=== PATIENT | female | born 1955 | race Caucasian/White ===

== ENCOUNTER → 2016-08-20 | Outpatient (CLI) | payer OTHER ==
[~2016-08-20] MED LIST: AMB10 PO; CEPH500T PO; FEXO1TAB46 PO; SERT-234 PO; SULF-183 PO; VALA500T60 PO
--- NOTE | 2016-08-20 07:40 | DIAGNOSTIC IMAGING REPORT ---
CT SCAN OF THE PARANASAL SINUSES CLINICAL HISTORY: Chronic sinusitis. COMPARISON STUDY: CT of the brain dated 08/14/2011. TECHNIQUE: High-resolution CT scan of the paranasal sinuses is performed. Images are reviewed in the axial, sagittal, and coronal planes. IV contrast was not administered for this examination. The examination is performed using the fusion protocol. CT DOSE: 657.00 mGy.cm FINDINGS: Postoperative change: There are postoperative changes from bilateral maxillary antrectomy with antrostomy formation as well as ethmoid sinus resection. Maxillary antra: Clear bilaterally. Ethmoid cavities: Clear. Sphenoid sinuses: Clear. Frontal sinuses: Clear. Antrostomies: Patent bilaterally. Frontoethmoidal and sphenoethmoidal recesses: Patent bilaterally. Carotid arteries: The carotid arteries are covered and without septal attachments. Ethmoid roofs: There is slightly asymmetric elevation of the right ethmoid roof as compared to the left. Nasal turbinates: Normal in appearance. Nasal septum: There is mild rightward deviation of the bony nasal septum. Optic nerves: Covered. Orbits: The bony orbits are intact. Orbital contents are normal in appearance. Calvarium: The skeletal structures are osteopenic. The imaged calvarium is normal in appearance Mastoid air cells: Well pneumatized. Brain parenchyma: Partially visualized brain parenchyma is within normal limits. IMPRESSION: 1. No paranasal sinus disease is identified. 2. Postoperative change as above. Electronically signed by: Florencio Mcguire M.D. 08/20/2016 7:39 AM Dictated Date/Time: 08/20/2016 7:36 AM
== END | disposition home or self-care (01) ==
LOC: C.CTS 07:18
DX: J32.9 Chronic sinusitis, unspecified (principal)

== ENCOUNTER → 2017-03-06 | Outpatient (CLI) | payer OTHER ==
[~2017-03-06] MED LIST changes: +BUPR-79 PO; +CETI10TA84 PO; +CHOL100010 PO; +CITA10TA4 PO; +DIAZ2TAB PO; +ESCI1TAB10 PO; +FLUT0.15; +MECL1TAB42 PO; +MULT-506 PO; +TRAM-453 PO; +ZOLP10TA PO; +ZOLP10TA6 PO
--- NOTE | 2017-03-06 12:47 | MAMMOGRAPHY REPORT ---
BILATERAL DIGITAL SCREENING MAMMOGRAM TOMOSYNTHESIS WITH CAD: 03/06/2017 CLINICAL HISTORY: Routine screening. TECHNIQUE: Breast tomosynthesis in addition to standard 2D mammography was performed. Current study was also evaluated with a Computer Aided Detection (CAD) system. COMPARISON: Comparison is made to exams dated: 02/29/2016 mammogram, 01/06/2015 mammogram, 01/05/2014 mammogram, 12/09/2012 mammogram, 03/01/2011 mammogram, and 02/22/2010 mammogram - [facility]. BREAST COMPOSITION: The tissue of both breasts is heterogeneously dense, which may obscure small mas ses. FINDINGS: No suspicious masses, calcifications, or areas of architectural distortion are noted in ei ther breast. There has been no significant interval change compared to prior exams. IMPRESSION: ACR BI-RADS CATEGORY 1: NEGATIVE There is no mammographic evidence of malignancy. A 1 year screening mammogram is recommended. The pa tient will receive written notification of the results. Approximately 10% of breast cancers are not detected with mammography. A negative mammographic report should not delay biopsy if a clinically suggestive mass is present. Madai Dimas M.D. /:03/06/2017 07:53:16 Platform Loader: Gerald COON(Юлия)(M), [facility] letter sent: Normal 1/2 BI-RADS Code: ACR BI-RADS Category 1: Negative
== END | disposition home or self-care (01) ==
LOC: C.MAMM 07:31
PROVIDERS: ATTEND Internal Medicine
DX: Z12.31 Encounter for screening mammogram for malignant neoplasm of breast (principal)

== ENCOUNTER 2017-03-07 12:01 | Emergency (ER) | payer OTHER ==
[~2017-03-07] VITALS: Ht 157.5 cm; Wt 55.8 kg
[~2017-03-07 12:01] MED LIST changes: -BUPR-79 PO; -CETI10TA84 PO; -CHOL100010 PO; -CITA10TA4 PO; -DIAZ2TAB PO; -ESCI1TAB10 PO; -FLUT0.15; -MECL1TAB42 PO; -MULT-506 PO; -TRAM-453 PO; -ZOLP10TA PO; -ZOLP10TA6 PO
[2017-03-07 12:04] VITALS: TEMP 36.3; Ht 157.5 cm; Wt 55.8 kg
[2017-03-07] MEDS ORDERED: CITA10TA4 PO (12:26)
[2017-03-07] MEDS ORDERED: ZOLP10TA6 PO (12:26)
[2017-03-07] MEDS ORDERED: BUPR-79 PO (12:26)
[2017-03-07] MEDS ORDERED: CHOL100010 PO (12:26)
[2017-03-07] MEDS ORDERED: MoRPHine SULFATE 10 MG/ML CARP/VIAL IV STA (12:36)
[2017-03-07] MEDS ORDERED: KETOROLAC TROMETHAMINE 30 MG/ML VIAL IV STA (12:36)
[2017-03-07] MEDS ORDERED: ONDANSETRON INJ 2 MG/ML 2 ML VIAL IV STA (12:36)
--- NOTE | 2017-03-07 12:42 | EMERGENCY ROOM VISIT NOTE ---
History Report prepared by [place]: Valentín Powell Under the Supervision of: Dr. Titi Staton M.D. First contact with patient: 12:19 Chief Complaint: BACK PAIN Stated Complaint: SEVERE LOWER BACK PAIN, HIP PAIN History of Present Illness The patient is a 61 year old white female without a past medical history who presents to the ED with a cc of worsening sharp left lower back pain beginning 1 week ago. Positive pain radiating into LLQ abdominal pain. Negative falls, injury, abnormal weight lifting, fevers, chills, cough, sore throat, nausea, vomiting, melena, hematochezia, diarrhea, or abnormal urinary symptoms. Her pain worsens significantly with movement. She does not get menstrual periods. She denies any history of kidney stones. She does not have any known drug allergies. She is currently taking Zolpidem, Wellbutrin, and Citalopram. Her last bowel movement was this morning and was normal. Source of History: patient Onset: 1 week ago Position: back (lower, left) Symptom Intensity: moderate Quality: sharp Timing: worsening Modifying Factors (Worsening): movement Associated Symptoms: + abdominal pain, No fevers, No chills, No sorethroat, No cough, No nausea, No vomiting, No melena, No hematochezia, No diarrhea, No urinary symptoms Review of Systems See HPI for pertinent positives and negatives. A total of ten systems were reviewed and were otherwise negative. Past Medical & Surgical Medical Problems: (1) Bladder surgery (2) Bronchitis (3) Depression (4) Foot surgery (5) Shoulder surgery (6) Sinus surgery (7) Tonsillectomy Family History Hypertension Lung disease Social History Smoking Status: Never Smoker Alcohol Use: none Drug Use: none Marital Status: Housing Status: lives with family Occupation Status: employed Current/Historical Medications Scheduled Bupropion (Wellbutrin Sr), 150 MG PO BID Cholecalciferol (Vitamin D), 1,000 UNITS PO DAILY Citalopram Hydrobromide (Citalopram Hydrobromide), 10 MG PO DAILY Tramadol Hcl (Ultram), 50 MG PO Q8H Valacyclovir (Valtrex), 500 MG PO BID PRN Scheduled PRN Zolpidem Tartrate (Zolpidem Tartrate), 10 MG PO HS PRN for Sleep Allergies Coded Allergies: No Known Allergies (Verified , 10/05/12) Physical Exam Vital Signs Date Time Temp Pulse Resp B/P (MAP) Pulse Ox O2 Delivery O2 Flow Rate FiO2 03/07/17 15:28 79 16 193/110 100 03/07/17 13:26 88 03/07/17 13:20 90 20 195/113 97 Room Air 03/07/17 12:04 36.3 98 20 202/100 100 Room Air Physical Exam GENERAL: Awake, alert, well-appearing, NAD HENT: Normocephalic, atraumatic. EYES: Normal conjunctiva. Sclera non-icteric. NECK: Supple. No nuchal rigidity. FROM. RESPIRATORY: CTAB, no rhonchi, wheezing, crackles CARDIAC: RRR, no MRG ABDOMEN: Soft, left sided flank pain, left CVA TTP, and mild diffuse TTP, BS+, negative obturators and psoas. MSK: No chest wall TTP, no LE edema NEURO: GCS 15, CN 2-12 intact, moves all 4s on command SKIN: No rash or jaundice noted. Medical Decision & Procedures ER Provider Diagnostic Interpretation: Radiology results as stated below per my review and radiologist interpretation: CHEST ONE VIEW PORTABLE CLINICAL HISTORY: Pain, radiating to the abdomen. COMPARISON STUDY: 09/15/2013 FINDINGS: The cardiac and mediastinal contours are normal. There is no evidence of focal pulmonary consolidation. There is no evidence of failure. No pleural effusions are visualized.[ Linear atelectatic changes are present the right medial lung base. There is no free intraperitoneal air. IMPRESSION: No active disease in the chest. Electronically signed by: Moreno Sandra M.D. 03/07/2017 1:11 PM Dictated Date/Time: 03/07/2017 1:09 PM ABD/PELVIS IV CONTRAST ONLY CLINICAL HISTORY: 61 years-old Female presenting with L sided flank, LLQ TTP, recent BM, no blood, mild diff TTP. TECHNIQUE: Multidetector CT of the abdomen and pelvis was performed after the administration of intravenous contrast. IV contrast: 93 mL of Optiray 320. A dose lowering technique was used consistent with the principles of ALARA (as low as reasonably achievable). COMPARISON: 08/06/2011. CT DOSE (mGy.cm): The estimated cumulative dose is 286.95 mGy.cm. FINDINGS: Telemarketing Representative topogram: Unremarkable. Lung bases: Minimal basilar opacities, likely atelectasis. Normal heart size. No pericardial or pleural effusion. Liver: Normal morphology. No liver lesion. Patent hepatic vasculature. Biliary: Mild diffuse intrahepatic biliary ductal dilatation without evidence of obstructing mass. No extra hepatobiliary ductal dilatation. Normal gallbladder. Pancreas: Mild pancreatic ductal prominence without evidence of an obstructing mass. Parenchyma normal. Spleen: Normal. Adrenal glands: Normal. Kidneys and ureters: Several hypodensities in the left kidney likely simple cysts. No hydronephrosis. No nephrolithiasis. Ureters normal. Bladder: Normal. Pelvic organs: Uterus and ovaries normal. Bowel: Moderate stool burden throughout normal caliber colon. The appendix is normal. No bowel traction. Peritoneal cavity: No free fluid or intraperitoneal gas. Lymph nodes: No enlarged lymph nodes in the abdomen or pelvis. Vasculature: Atherosclerosis of the normal caliber abdominal aorta. IVC patent. Abdominal wall: Small fat-containing umbilical hernia. Musculoskeletal: Normal. IMPRESSION: 1. No acute intra-abdominal pathology. 2. Mild diffuse intrahepatic biliary ductal dilatation without gross evidence of an obstructing mass. 3. Moderate stool burden. 4. No nephrolithiasis. Electronically signed by: Alan Mehta M.D. 03/07/2017 1:59 PM Dictated Date/Time: 03/07/2017 1:53 PM Laboratory Results 03/07/17 12:46 Red Blood Count 3.49, Mean Corpuscular Volume 89.1, Mean Corpuscular Hemoglobin 29.8, Mean Corpuscular Hemoglobin Concent 33.4, Mean Platelet Volume 9.8, Neutrophils (%) (Auto) 77.6, Lymphocytes (%) (Auto) 15.9, Monocytes (%) (Auto) 4.6, Eosinophils (%) (Auto) 1.0, Basophils (%) (Auto) 0.5, Neutrophils # (Auto) 6.38, Lymphocytes # (Auto) 1.31, Monocytes # (Auto) 0.38, Eosinophils # (Auto) 0.08, Basophils # (Auto) 0.04 03/07/17 12:46 Test 03/07/17 12:46 03/07/17 13:15 White Blood Count 8.22 K/uL (4.8-10.8) Red Blood Count 3.49 M/uL (4.2-5.4) Hemoglobin 10.4 g/dL (12.0-16.0) Hematocrit 31.1 % (37-47) Mean Corpuscular Volume 89.1 fL (80-100) Mean Corpuscular Hemoglobin 29.8 pg (25-34) Mean Corpuscular Hemoglobin Concent 33.4 g/dl (32-36) Platelet Count 291 K/uL (130-400) Mean Platelet Volume 9.8 fL (7.4-10.4) Neutrophils (%) (Auto) 77.6 % Lymphocytes (%) (Auto) 15.9 % Monocytes (%) (Auto) 4.6 % Eosinophils (%) (Auto) 1.0 % Basophils (%) (Auto) 0.5 % Neutrophils # (Auto) 6.38 K/uL (1.4-6.5) Lymphocytes # (Auto) 1.31 K/uL (1.2-3.4) Monocytes # (Auto) 0.38 K/uL (0.11-0.59) Eosinophils # (Auto) 0.08 K/uL (0-0.5) Basophils # (Auto) 0.04 K/uL (0-0.2) RDW Standard Deviation 47.3 fL (36.4-46.3) RDW Coefficient of Variation 14.8 % (11.5-14.5) Immature Granulocyte % (Auto) 0.4 % Immature Granulocyte # (Auto) 0.03 K/uL (0.00-0.02) Anion Gap 7.0 mmol/L (3-11) Est Creatinine Clear Calc Drug Dose 77.9 ml/min Estimated GFR () 114.0 Estimated GFR (Non- 98.4 BUN/Creatinine Ratio 14.7 (10-20) Calcium Level 9.3 mg/dl (8.5-10.1) Total Bilirubin 0.3 mg/dl (0.2-1) Direct Bilirubin < 0.1 mg/dl (0-0.2) Aspartate Amino Transf (AST/SGOT) 33 U/L (15-37) Alanine Aminotransferase (ALT/SGPT) 34 U/L (12-78) Alkaline Phosphatase 73 U/L (45-117) Total Protein 7.3 gm/dl (6.4-8.2) Albumin 4.0 gm/dl (3.4-5.0) Lipase 186 U/L (73-393) Influenza Type A Antigen Neg for Influ A (NEG) Influenza Type B Antigen Neg for Influ B (NEG) Urine Color YELLOW Urine Appearance CLOUDY (CLEAR) Urine pH 8.0 (4.5-7.5) Urine Specific [place] 1.014 (1.000-1.030) Urine Protein NEG (NEG) Urine Glucose (UA) NEG (NEG) Urine Ketones NEG (NEG) Urine Occult Blood NEG (NEG) Urine Nitrite NEG (NEG) Urine Bilirubin NEG (NEG) Urine Urobilinogen NEG (NEG) Urine Leukocyte Esterase NEG (NEG) Urine WBC (Auto) 1-5 /hpf (0-5) Urine RBC (Auto) 0-4 /hpf (0-4) Urine Hyaline Casts (Auto) 0 /lpf (0-5) Urine Epithelial Cells (Auto) 0-5 /lpf (0-5) Urine Bacteria (Auto) NEG (NEG) Laboratory results reviewed by me Medications Administered Medications (Trade) Dose Ordered Sig/Heide Route Start Time Stop Time Status Last Admin Dose Admin Ondansetron HCl (Zofran Inj) 4 mg NOW STAT IV 03/07/17 12:36 03/07/17 12:40 DC 03/07/17 13:20 4 MG Ketorolac Tromethamine (Toradol Inj) 30 mg NOW STAT IV 03/07/17 12:36 03/07/17 12:40 DC 03/07/17 13:20 30 MG Morphine Sulfate (MoRPHine SULFATE INJ) 8 mg NOW STAT IV 03/07/17 12:36 03/07/17 12:40 DC 03/07/17 13:20 8 MG ED Course 1219: The patient was evaluated in room C7. A complete history and physical exam was performed. 1445: I reevaluated the patient. She is feeling better. Discussed results and discharge instructions: She verbalized understanding and agreement. The patient is ready for discharge. Medical Decision The patient is a 61 year old white female without a past medical history who presents to the ED with a cc of worsening sharp left lower back pain beginning 1 week ago. Positive pain radiating into LLQ abdominal pain. Negative falls, injury, abnormal weight lifting, fevers, chills, cough, sore throat, nausea, vomiting, melena, hematochezia, diarrhea, or abnormal urinary symptoms. Differential diagnosis: Etiologies such as renal colic, appendicitis, diverticulitis, mesenteric ischemia, aortic pathology, infections, inflammatory bowel disease, PUD, biliary pathology, UTI, PUD, biliary pathology, UTI, pancreatitis, obstruction, as well as others were entertained. Patient was seen and evaluated the bedside. Patient has had some worsening left -sided abdominal flank pain 1 week. Patient was seen by their primary care physician who referred him in for further evaluation. Patient does have a fairly tender left sided abdomen. Patient did have blood work completed along with a urinalysis, chest x-ray, and CT of the abdomen pelvis. Patient was also given pain medication. Patient's blood work was fairly unremarkable. Patient does not have an elevated white blood cell count. Patient does have some mild anemia. Patient does not have any elevations in her LFTs or lipase. Patient's kidney function. Patient urinalysis does not show infection or blood. CT does not show any acute medical or surgical pathology. Patient was informed of all findings patient was feeling improved and patient was told to follow-up with her PCP for further evaluation and treatment and possible specialist referral if the patient is have ongoing pain. Given the patient's normal white count, improvement of pain, and history and physical loss. Be somewhat mesenteric ischemia. I did inform the patient watch out for any skin changes that could be concerning for something like zoster. Patient was informed that the CT did show intrahepatic ductal dilation. The patient does not have any elevations in LFTs or bilirubin does not have any right upper quadrant pain therefore an ultrasound was obtained at this time. Patient was told she should discuss this with her primary care physician if this becomes more persistent issue but do not feel it needs to be worked up at this time. Patient was deemed suitable for outpatient follow-up and treatment. Patient was given strict follow-up, discharge, and return precautions. All questions were answered. Patient was deemed suitable for outpatient follow-up at this time. Patient agreed with the plan of care and was safely discharged home. Medication Reconcilliation Current Medication List: was personally reviewed by me Blood Pressure Screening Patient's blood pressure: Elevated blood pressure Blood pressure disposition: Referred to PCP Impression Primary Impression: Flank pain Additional Impressions: Anemia Hypokalemia Scribe Attestation The scribe's documentation has been prepared under my direction and personally reviewed by me in its entirety. I confirm that the note above accurately reflects all work, treatment, procedures, and medical decision making performed by me. Departure Information Dispostion Home / Self-Care Prescriptions Tramadol Hcl (ULTRAM) 50 Mg Tab 50 MG PO Q8H, #12 TAB PRN PAIN Prov: Titi Staton M.D. 03/07/17 Referrals Marcella Valadez M.D. (PCP) Forms HOME CARE DOCUMENTATION FORM, IMPORTANT VISIT INFORMATION Patient Instructions ED Flank Pain Uncertain Cause, Hypokalemia Dc, My [facility] Additional Instructions Please return to the emergency department if you have worsening or recurrent symptoms not amenable to at-home treatment. Please call for a follow-up appointment with her primary care physician. Please take your medications as prescribed. If you have other concerns and/or complaints please feel free to also call your primary care physician's office or return the ED for further evaluation, management, and treatment. You received narcotic or benzodiazepene medication while in the emergency room today. This is an addictive medication that may cause drowziness as well as constipation. Do not drive, operate heavy machinery, or drink alcohol under the influence of this medication. Your potassium was slightly low. You may supplement with a vitamin or you may increase the amount of potatoes or bananas in your diet. You may take 600 mg Ibuprofen every 6 hours as needed for pain with food for no more than 2 consecutive days. You may take tylenol 1000 mg every 6 hours as needed for pain. You may take motrin and tylenol separately or at the same time. Take your medications as prescribed. You have been examined and treated today on an emergency basis only. This is not a substitute for, or an effort to provide, complete comprehensive medical care. It is impossible to recognize and treat all injuries or illnesses in a single emergency department visit. It is therefore important that you follow up closely with [facility], your PCP, and/or your specialist(s). Call as soon as possible for an appointment. Thank you for your time and consideration. I look forward to speaking with you again soon. Please don't hesitate to call us if you have any questions. Problem Qualifiers Additional Impressions: Anemia Anemia type: unspecified type Qualified Codes: D64.9 - Anemia, unspecified
[2017-03-07] MEDS ORDERED: OPTIRAY 320 IV PRN (12:45)
[2017-03-07 13:08] LABS: BASO % 0.5 %; BASO ABS # 0.04 K/uL (0-0.2); EOS ABS # 0.08 K/uL (0-0.5); HEMATOCRIT 31.1 % (37-47); HEMOGLOBIN 10.4 g/dL (12.0-16.0); IG# 0.03 K/uL (0.00-0.02); LYMPH % 15.9 %; LYMPH ABS # 1.31 K/uL (1.2-3.4); MEAN CELL VOLUME 89.1 fL (80-100); MEAN CORPUSCULAR HEMOGLOBIN 29.8 pg (25-34); MEAN CORPUSCULAR HGB CONC 33.4 g/dl (32-36); MEAN PLATELET VOLUME 9.8 fL (7.4-10.4); MONO % 4.6 %; MONO ABS # 0.38 K/uL (0.11-0.59); NEUT % 77.6 %; NEUT ABS # 6.38 K/uL (1.4-6.5); PLATELET COUNT 291 K/uL (130-400); RED CELL DISTRIBUTION WIDTH CV 14.8 % (11.5-14.5); RED CELL DISTRIBUTION WIDTH SD 47.3 fL (36.4-46.3); WHITE BLOOD COUNT 8.22 K/uL (4.8-10.8)
--- NOTE | 2017-03-07 13:13 | DIAGNOSTIC IMAGING REPORT ---
CHEST ONE VIEW PORTABLE CLINICAL HISTORY: Pain, radiating to the abdomen. COMPARISON STUDY: 09/15/2013 FINDINGS: The cardiac and mediastinal contours are normal. There is no evidence of focal pulmonary consolidation. There is no evidence of failure. No pleural effusions are visualized.[ Linear atelectatic changes are present the right medial lung base. There is no free intraperitoneal air. IMPRESSION: No active disease in the chest. Electronically signed by: Moreno Sandra M.D. 03/07/2017 1:11 PM Dictated Date/Time: 03/07/2017 1:09 PM
[2017-03-07 13:26] LABS: ALT/SGPT 34 U/L (12-78); AST/SGOT 33 U/L (15-37); BLOOD UREA NITROGEN 9 mg/dl (7-18); CALCIUM 9.3 mg/dl (8.5-10.1); CARBON DIOXIDE 28 mmol/L (21-32); GLUCOSE 96 mg/dl (70-99); POTASSIUM 3.3 mmol/L (3.5-5.1); SODIUM 140 mmol/L (136-145)
[2017-03-07 13:29] LABS: ALKALINE PHOSPHATASE 73 U/L (45-117); LIPASE 186 U/L (73-393); TOTAL PROTEIN 7.3 gm/dl (6.4-8.2)
[2017-03-07 13:48] LABS: INFLUENZA B ANTIGEN Neg for Influ B (NEG)
--- NOTE | 2017-03-07 14:01 | DIAGNOSTIC IMAGING REPORT ---
ABD/PELVIS IV CONTRAST ONLY CLINICAL HISTORY: 61 years-old Female presenting with L sided flank, LLQ TTP, recent BM, no blood, mild diff TTP. TECHNIQUE: Multidetector CT of the abdomen and pelvis was performed after the administration of intravenous contrast. IV contrast: 93 mL of Optiray 320. A dose lowering technique was used consistent with the principles of ALARA (as low as reasonably achievable). COMPARISON: 08/06/2011. CT DOSE (mGy.cm): The estimated cumulative dose is 286.95 mGy.cm. FINDINGS: Curriculum Designer topogram: Unremarkable. Lung bases: Minimal basilar opacities, likely atelectasis. Normal heart size. No pericardial or pleural effusion. Liver: Normal morphology. No liver lesion. Patent hepatic vasculature. Biliary: Mild diffuse intrahepatic biliary ductal dilatation without evidence of obstructing mass. No extra hepatobiliary ductal dilatation. Normal gallbladder. Pancreas: Mild pancreatic ductal prominence without evidence of an obstructing mass. Parenchyma normal. Spleen: Normal. Adrenal glands: Normal. Kidneys and ureters: Several hypodensities in the left kidney likely simple cysts. No hydronephrosis. No nephrolithiasis. Ureters normal. Bladder: Normal. Pelvic organs: Uterus and ovaries normal. Bowel: Moderate stool burden throughout normal caliber colon. The appendix is normal. No bowel traction. Peritoneal cavity: No free fluid or intraperitoneal gas. Lymph nodes: No enlarged lymph nodes in the abdomen or pelvis. Vasculature: Atherosclerosis of the normal caliber abdominal aorta. IVC patent. Abdominal wall: Small fat-containing umbilical hernia. Musculoskeletal: Normal. IMPRESSION: 1. No acute intra-abdominal pathology. 2. Mild diffuse intrahepatic biliary ductal dilatation without gross evidence of an obstructing mass. 3. Moderate stool burden. 4. No nephrolithiasis. Electronically signed by: lAan Mehta M.D. 03/07/2017 1:59 PM Dictated Date/Time: 03/07/2017 1:53 PM
[2017-03-07] MEDS ORDERED: TRAM-453 PO (14:52)
[2017-03-07 15:28] VITALS: BP 193/110; PULSE 79; O2SAT 100
== END 2017-03-07 15:29 | disposition home or self-care (01) ==
LOC: C.EDB 12:02 → C.EDC 15:29
DX: R10.32 Left lower quadrant pain (principal); M54.5 Low back pain; D64.9 Anemia, unspecified; E87.6 Hypokalemia; F32.9 Major depressive disorder, single episode, unspecified; Z82.49 Family history of ischemic heart disease and other diseases of the circulatory system

== ENCOUNTER 2017-03-11 09:26 | Emergency (ER) | payer OTHER ==
[~2017-03-11] VITALS: Ht 157.5 cm; Wt 53.4 kg
[~2017-03-11 09:26] MED LIST changes: -AMB10 PO; +BUPR-79 PO; -CEPH500T PO; +CHOL100010 PO; +CITA10TA4 PO; -FEXO1TAB46 PO; -SERT-234 PO; -SULF-183 PO; +TRAM-453 PO; +ZOLP10TA6 PO
[2017-03-11 09:28] VITALS: TEMP 36.3; Ht 157.5 cm; Wt 53.4 kg
--- NOTE | 2017-03-11 11:00 | DIAGNOSTIC IMAGING REPORT ---
PA CHEST RADIOGRAPH AND UPRIGHT AND SUPINE AP RADIOGRAPHS OF THE ABDOMEN CLINICAL HISTORY: Constipation. Abdominal pain. COMPARISON STUDY: Chest radiograph and CT of the abdomen and pelvis March 07, 2017. FINDINGS: Lung lungs are normal. No pneumothorax or pleural effusion is noted. There is no evidence for pulmonary edema. No consolidation is identified. Cardiac mediastinal silhouette is normal. Biapical opacities favor scarring. There is no free air. The bowel gas pattern is normal. There is a moderate to large amount of stool within the colon. There is no significant stool within the rectum. IMPRESSION: 1. No free air or evidence of bowel obstruction. 2. Moderate to large amount of stool within the colon. 3. No acute cardiopulmonary findings. Electronically signed by: Jese Valadez M.D. 03/11/2017 10:58 AM Dictated Date/Time: 03/11/2017 10:57 AM
[2017-03-11 11:04] LABS: BASO % 0.5 %; BASO ABS # 0.04 K/uL (0-0.2); EOS % 0.4 %; EOS ABS # 0.03 K/uL (0-0.5); HEMATOCRIT 32.8 % (37-47); HEMOGLOBIN 11.2 g/dL (12.0-16.0); IG# 0.02 K/uL (0.00-0.02); LYMPH % 13.4 %; LYMPH ABS # 1.12 K/uL (1.2-3.4); MEAN CELL VOLUME 87.2 fL (80-100); MEAN CORPUSCULAR HEMOGLOBIN 29.8 pg (25-34); MEAN CORPUSCULAR HGB CONC 34.1 g/dl (32-36); MEAN PLATELET VOLUME 9.5 fL (7.4-10.4); MONO % 4.1 %; MONO ABS # 0.34 K/uL (0.11-0.59); NEUT % 81.4 %; NEUT ABS # 6.78 K/uL (1.4-6.5); PLATELET COUNT 390 K/uL (130-400); RED CELL DISTRIBUTION WIDTH CV 14.3 % (11.5-14.5); RED CELL DISTRIBUTION WIDTH SD 45.1 fL (36.4-46.3); WHITE BLOOD COUNT 8.33 K/uL (4.8-10.8)
[2017-03-11 11:25] LABS: ALBUMIN 3.9 gm/dl (3.4-5.0); CALCIUM 9.5 mg/dl (8.5-10.1); CREATININE 0.75 mg/dl (0.60-1.20); POTASSIUM 3.2 mmol/L (3.5-5.1)
[2017-03-11] MEDS ORDERED: KETOROLAC TROMETHAMINE 30 MG/ML VIAL IV STA (11:27)
[2017-03-11 11:32] LABS: TOTAL PROTEIN 7.1 gm/dl (6.4-8.2)
--- NOTE | 2017-03-11 11:57 | DIAGNOSTIC IMAGING REPORT ---
PELVIC COMPLETE NON OB CLINICAL HISTORY: LLQ pain PAIN. NAUSEA. COMPARISON STUDY: None FINDINGS: The uterus measured 4.8 cm. The endometrial stripe measured 2 mm. The right ovary measured not well seen. The left ovary measured not well seen. There is no ultrasonographic evidence of ovarian torsion. It should be noted that ovarian torsion can be present with normal Doppler ultrasonographic findings. There was no evidence of pathologic free pelvic fluid. IMPRESSION: 1. Nonvisualization of the ovaries possibly due to atrophy.. 2. Otherwise negative study. The above report was generated using voice recognition software. It may contain grammatical, syntax or spelling errors. Electronically signed by: Milo Lynn M.D. 03/11/2017 11:56 AM Dictated Date/Time: 03/11/2017 11:55 AM
--- NOTE | 2017-03-11 12:05 | DIAGNOSTIC IMAGING REPORT ---
ABDOMINAL ULTRASOUND COMPLETE HISTORY: Right upper quadrant abdominal pain.. COMPARISON: Abdomen and pelvis CT 03/07/2017. FINDINGS: Pancreas: The pancreas demonstrates a normal echotexture. Liver: Unremarkable. Gallbladder: No gallbladder wall thickening. No gallstones. CBD: 6 mm. Kidneys: No hydronephrosis. Lower pole of the right kidney is partially obscured by overlying bowel gas. A 1 cm cyst within the left kidney. Spleen: Normal in size. Aorta: Normal in caliber. IVC: Patent. IMPRESSION: No significant abnormality identified within the within the abdomen. Electronically signed by: Reji Meek M.D. 03/11/2017 12:04 PM Dictated Date/Time: 03/11/2017 12:02 PM
[2017-03-11] MEDS ORDERED: SOD PHOSPHATE/SOD BIPHOSPHATE ENEMA 132 ML BTL PR STA (12:24)
--- NOTE | 2017-03-11 13:40 | EMERGENCY ROOM VISIT NOTE ---
History First contact with patient: 09:33 Chief Complaint: ABDOMINAL PAIN Stated Complaint: AB PAIN,NAUSEA,LIGHT HEADED Nursing Triage Summary: left side abdominal pain for past several days. here recently for same symptoms. my stomach is "swollen" History of Present Illness The patient is a 61 year old female who presents to the Emergency Room with complaints of left lower quadrant abdominal pain. The patient states she hasn' t felt well for approximately one and a half weeks. The patient began in the left flank, radiating into the left lower quadrant. The patient was seen here on Friday, where a CT scan of the abdomen and pelvis was performed without any acute findings noted. The patient states "it feels like someone is cutting the with a knife", and describes her pain 8/10. She states the pain is worse in the left lower quadrant, but is also present in the right upper quadrant, which is new. She states she is unable to get comfortable. She did see her PCP yesterday, was started on Cipro and Flagyl in case she was diagnosed with diverticulitis. The patient states she has also been experiencing intermittent lightheadedness, chills, nausea, and subjective fever. She has been taking ibuprofen and tramadol, without improvement in her pain. The patient's last bowel movement was Friday before she was seen here in the emergency department. She states yesterday, she did have a sensation that she had to move her bowels , but was unable. The patient states she did call her PCP yesterday, was advised to try a suppository and stool softener. She did try these medications , but did not notice any improvement in her symptoms. Her last colonoscopy was less than 10 years ago. The patient states she is not having any urinary symptoms. She is postmenopausal, but states she still has her ovaries. She is not experiencing any vaginal symptoms. The patient denies any vomiting, diarrhea, chest pain, difficulty breathing, coughing, upper respiratory infection symptoms, blood in the urination or stool, or other associated symptoms. Review of Systems A complete 10 point review of systems was reviewed with the patient with pertinent positives and negatives as per history of present illness. All else were negative. Past Medical/Surgical History Medical Problems: (1) Bladder surgery (2) Bronchitis (3) Depression (4) Foot surgery (5) Shoulder surgery (6) Sinus surgery (7) Tonsillectomy Family History Hypertension Lung disease Social History Smoking Status: Never Smoker Alcohol Use: none Drug Use: none Marital Status: Housing Status: lives with family Occupation Status: employed Current/Historical Medications Scheduled Bupropion (Wellbutrin Sr), 150 MG PO BID Cholecalciferol (Vitamin D), 1,000 UNITS PO DAILY Citalopram Hydrobromide (Citalopram Hydrobromide), 10 MG PO DAILY Tramadol Hcl (Ultram), 50 MG PO Q8H Valacyclovir (Valtrex), 500 MG PO BID PRN Scheduled PRN Zolpidem Tartrate (Zolpidem Tartrate), 10 MG PO HS PRN for Sleep Physical Exam Vital Signs Date Time Temp Pulse Resp B/P (MAP) Pulse Ox O2 Delivery O2 Flow Rate FiO2 03/11/17 14:05 95 18 170/110 98 03/11/17 11:50 76 18 212/119 100 Room Air 03/11/17 09:28 36.3 95 18 142/90 100 Room Air Physical Exam VITALS: Vitals are noted on the nurse's note and reviewed by myself. Vital signs stable. GENERAL: This is a 61-year-old white female, in no acute distress, nondiaphoretic, well-developed well-nourished. SKIN: The skin was without rashes, erythema, edema, or bruising. There is no tenting of the skin. Capillary reflex less than 2 seconds. HEAD: Normocephalic atraumatic. EARS: External auditory canals clear, tympanic membranes pearly marsh without erythema or effusion bilaterally. EYES: Pupils equal round and reactive to light and accommodation. Conjunctivae without injection, sclerae without icterus. Extraocular movements intact. NOSE: Patent, turbinates without inflammation or discharge. No sinus tenderness. MOUTH: Mucous membranes moist. Tonsils are not enlarged. Pharynx without erythema or exudate. Uvula midline. Airway patent. Tongue does not deviate. NECK: Supple without nuchal rigidity. No lymphadenopathy. No thyromegaly. Cervical spine is nontender. No JVD. HEART: Regular rate and rhythm without murmurs gallops or rubs. LUNGS: Clear to auscultation bilaterally without wheezes, rales or rhonchi. No dullness to percussion. No retractions or accessory muscle use. ABDOMEN: Positive bowel sounds x 4. Normal tympanic percussion. Distended, and mildly diffusely tender, but without masses or organomegaly. Benitez sign negative. No guarding or rebound tenderness. MUSCULOSKELETAL: No muscle atrophy, erythema, or edema noted. Full range of motion without joint tenderness in all extremities. No tenderness to palpation. Normal gait. Strength 5/5 throughout. NEURO: Patient was alert and oriented to person place and time. Normal sensation to light and sharp touch. Deep tendon reflexes 2+ throughout. No focal neurological deficits. Medical Decision & Procedures ER Provider Diagnostic Interpretation: CBC was without leukocytosis, significant anemia, or thrombocytopenia. Urinalysis did not show signs of infection. Potassium was low at 3.2. Otherwise, CMP was without abnormalities. Lipase was normal. PA CHEST RADIOGRAPH AND UPRIGHT AND SUPINE AP RADIOGRAPHS OF THE ABDOMEN CLINICAL HISTORY: Constipation. Abdominal pain. COMPARISON STUDY: Chest radiograph and CT of the abdomen and pelvis March 07, 2017. FINDINGS: Lung lungs are normal. No pneumothorax or pleural effusion is noted. There is no evidence for pulmonary edema. No consolidation is identified. Cardiac mediastinal silhouette is normal. Biapical opacities favor scarring. There is no free air. The bowel gas pattern is normal. There is a moderate to large amount of stool within the colon. There is no significant stool within the rectum. IMPRESSION: 1. No free air or evidence of bowel obstruction. 2. Moderate to large amount of stool within the colon. 3. No acute cardiopulmonary findings. Electronically signed by: Jese Valadez M.D. 03/11/2017 10:58 AM Dictated Date/Time: 03/11/2017 10:57 AM ABDOMINAL ULTRASOUND COMPLETE HISTORY: Right upper quadrant abdominal pain.. COMPARISON: Abdomen and pelvis CT 03/07/2017. FINDINGS: Pancreas: The pancreas demonstrates a normal echotexture. Liver: Unremarkable. Gallbladder: No gallbladder wall thickening. No gallstones. CBD: 6 mm. Kidneys: No hydronephrosis. Lower pole of the right kidney is partially obscured by overlying bowel gas. A 1 cm cyst within the left kidney. Spleen: Normal in size. Aorta: Normal in caliber. IVC: Patent. IMPRESSION: No significant abnormality identified within the within the abdomen. Electronically signed by: Reji Meek M.D. 03/11/2017 12:04 PM Dictated Date/Time: 03/11/2017 12:02 PM PELVIC COMPLETE NON OB CLINICAL HISTORY: LLQ pain PAIN. NAUSEA. COMPARISON STUDY: None FINDINGS: The uterus measured 4.8 cm. The endometrial stripe measured 2 mm. The right ovary measured not well seen. The left ovary measured not well seen. There is no ultrasonographic evidence of ovarian torsion. It should be noted that ovarian torsion can be present with normal Doppler ultrasonographic findings. There was no evidence of pathologic free pelvic fluid. IMPRESSION: 1. Nonvisualization of the ovaries possibly due to atrophy.. 2. Otherwise negative study. The above report was generated using voice recognition software. It may contain grammatical, syntax or spelling errors. Electronically signed by: Milo Lynn M.D. 03/11/2017 11:56 AM Dictated Date/Time: 03/11/2017 11:55 AM Laboratory Results 03/11/17 10:40 Red Blood Count 3.76, Mean Corpuscular Volume 87.2, Mean Corpuscular Hemoglobin 29.8, Mean Corpuscular Hemoglobin Concent 34.1, Mean Platelet Volume 9.5, Neutrophils (%) (Auto) 81.4, Lymphocytes (%) (Auto) 13.4, Monocytes (%) (Auto) 4.1, Eosinophils (%) (Auto) 0.4, Basophils (%) (Auto) 0.5, Neutrophils # (Auto) 6.78, Lymphocytes # (Auto) 1.12, Monocytes # (Auto) 0.34, Eosinophils # (Auto) 0.03, Basophils # (Auto) 0.04 03/11/17 10:40 Test 03/11/17 10:40 03/11/17 11:55 White Blood Count 8.33 K/uL (4.8-10.8) Red Blood Count 3.76 M/uL (4.2-5.4) Hemoglobin 11.2 g/dL (12.0-16.0) Hematocrit 32.8 % (37-47) Mean Corpuscular Volume 87.2 fL (80-100) Mean Corpuscular Hemoglobin 29.8 pg (25-34) Mean Corpuscular Hemoglobin Concent 34.1 g/dl (32-36) Platelet Count 390 K/uL (130-400) Mean Platelet Volume 9.5 fL (7.4-10.4) Neutrophils (%) (Auto) 81.4 % Lymphocytes (%) (Auto) 13.4 % Monocytes (%) (Auto) 4.1 % Eosinophils (%) (Auto) 0.4 % Basophils (%) (Auto) 0.5 % Neutrophils # (Auto) 6.78 K/uL (1.4-6.5) Lymphocytes # (Auto) 1.12 K/uL (1.2-3.4) Monocytes # (Auto) 0.34 K/uL (0.11-0.59) Eosinophils # (Auto) 0.03 K/uL (0-0.5) Basophils # (Auto) 0.04 K/uL (0-0.2) RDW Standard Deviation 45.1 fL (36.4-46.3) RDW Coefficient of Variation 14.3 % (11.5-14.5) Immature Granulocyte % (Auto) 0.2 % Immature Granulocyte # (Auto) 0.02 K/uL (0.00-0.02) Anion Gap 6.0 mmol/L (3-11) Est Creatinine Clear Calc Drug Dose 62.3 ml/min Estimated GFR () 99.7 Estimated GFR (Non- 86.0 BUN/Creatinine Ratio 12.1 (10-20) Calcium Level 9.5 mg/dl (8.5-10.1) Total Bilirubin 0.5 mg/dl (0.2-1) Aspartate Amino Transf (AST/SGOT) 26 U/L (15-37) Alanine Aminotransferase (ALT/SGPT) 28 U/L (12-78) Alkaline Phosphatase 80 U/L (45-117) Total Protein 7.1 gm/dl (6.4-8.2) Albumin 3.9 gm/dl (3.4-5.0) Globulin 3.2 gm/dl (2.5-4.0) Albumin/Globulin Ratio 1.2 (0.9-2) Lipase 135 U/L (73-393) Urine Color YELLOW Urine Appearance CLEAR (CLEAR) Urine pH 8.0 (4.5-7.5) Urine Specific [place] 1.011 (1.000-1.030) Urine Protein NEG (NEG) Urine Glucose (UA) NEG (NEG) Urine Ketones NEG (NEG) Urine Occult Blood NEG (NEG) Urine Nitrite NEG (NEG) Urine Bilirubin NEG (NEG) Urine Urobilinogen NEG (NEG) Urine Leukocyte Esterase NEG (NEG) Medications Administered Medications (Trade) Dose Ordered Sig/Heide Route Start Time Stop Time Status Last Admin Dose Admin Ketorolac Tromethamine (Toradol Inj) 30 mg NOW STAT IV 03/11/17 11:27 03/11/17 11:28 DC 03/11/17 11:50 30 MG Sodium Biphosphate/ Sodium Phosphate (Fleet Enema) 132 ml NOW STAT HI 03/11/17 12:24 03/11/17 12:26 DC 03/11/17 12:58 132 ML ED Course The patient was seen and evaluated . Previous medical records were reviewed. Particularly regarding her last ED visit. CT scan did show mild diffuse intrahepatic biliary ductal dilatation without gross evidence of an obstruction mass. Dr. Staton had considered U/S last visit, however, due to the patient's lack of abnormalities regarding liver function, U/S was not performed in the ED. CT scan did show a moderate amount of stool within the colon and bowel. Repeat labs and ultrasound were ordered. Abdominal x-ray was ordered as well to evaluate for possible constipation. The patient was given 30mg Toradol IV. I did review all labs and imaging. Ultrasounds were unrevealing. Abdominal x- ray did show a significant amount of stool within the colon and bowel. I discussed this finding with the patient at bedside. She was given a fleets enema, and did have a bowel movement. She states she continues to feel distended, however is feeling slightly better after that bowel movement. Discharge instructions were reviewed, and the patient was discharged home in good condition. Medical Decision This is a 61-year-old white female who presents today complaining of left lower quadrant pain, radiating into the right upper quadrant. She was diffusely tender and distended. Her labs and ultrasound findings were not concerning for acute infection or surgical process. The patient's abdominal x-ray did show a significant amount of stool within the colon. I do suspect the patient is suffering from constipation, and I suspect that is the cause of her discomfort. The patient was given a fleets enema, did move her bowels, and was feeling mildly better. She was instructed on outpatient management for constipation, was advised to use MiraLAX, Benefiber, and plenty of fluids to hopefully pass the stool. I did encourage the patient to follow up with her primary care provider at her scheduled appointment tomorrow to discuss her symptoms and ensure she is taking all medications properly. I did discuss the risks of overuse of MiraLAX and fiber supplement with the patient. She was encouraged to take potassium supplement, as her potassium was low on labs. Patient and her were in agreement with the assessment and plan. All questions were answered to their satisfaction. Discharge instructions were reviewed, and patient was discharged home in good condition. Etiologies such as constipation, appendicitis, diverticulitis, obstruction, inflammatory bowel disease, renal colic, PUD, biliary pathology, pancreatitis, mesenteric ischemia, mesenteric adenitis, aortic pathology, infections, genitourinary, UTI, perforated viscus, as well as others were entertained. Medication Reconcilliation Current Medication List: was personally reviewed by me Blood Pressure Screening Patient's blood pressure: Elevated blood pressure Blood pressure disposition: Elevated BP felt to be situational Impression Primary Impression: Constipation Departure Information Dispostion Home / Self-Care Condition GOOD Referrals Marcella Valadez M.D. (PCP) Patient Instructions ED Constipation, My [facility] Additional Instructions You have been treated in the Emergency Department today for Constipation. Laboratory results and imaging studies do not indicate any emergent issues warranting surgery or admission. You should drink plenty of fluids and stay well hydrated as this can help soften your stool. Increasing your fiber intake can help with frequency and consistency of your stools. Fruits, vegetables, and whole grains are all good sources of dietary fibers. In addition, you might consider adding supplemental fiber to your diet as well (i.e. Benefiber, Fiber Choice, Metamucil). You may consider a laxative such as MiraLAX as directed to help with the constipation. Do not take this medication long-term without the direction of your PCP. You should take a potassium supplement or eat high-potassium foods. Your potassium was low here in the ED. You should schedule an appointment with your Primary Care Provider to discuss the possibility of adding a stool softener or laxative to your medications. Stool Softeners and Laxatives should only be taken after consultation with your PCP as they have the potential to cause electrolyte abnormalities and worsening symptoms. Return to the Emergency Department if your current symptoms worsen despite treatment course outlined above, or if you develop any of the following symptoms : worsening abdominal pain, large amount of blood in the stool, black or tarry stools, fevers, chills, or uncontrollable vomiting. Problem Qualifiers Primary Impression: Constipation Constipation type: unspecified constipation type Qualified Codes: K59.00 - Constipation, unspecified
[2017-03-11 14:05] VITALS: BP 170/110; PULSE 95; O2SAT 98
== END 2017-03-11 14:06 | disposition home or self-care (01) ==
LOC: C.EDB 09:28 → C.EDA 14:06
DX: K59.00 Constipation, unspecified (principal); F32.9 Major depressive disorder, single episode, unspecified; Z98.890 Other specified postprocedural states; Z79.899 Other long term (current) drug therapy; Z82.49 Family history of ischemic heart disease and other diseases of the circulatory system

== ENCOUNTER → 2017-03-19 | Outpatient (CLI) | payer OTHER ==
[~2017-03-19] MED LIST changes: -TRAM-453 PO
[2017-03-19 17:26] LABS: BASO % 0.8 %; BASO ABS # 0.06 K/uL (0-0.2); EOS % 1.1 %; EOS ABS # 0.08 K/uL (0-0.5); HEMATOCRIT 35.2 % (37-47); HEMOGLOBIN 11.5 g/dL (12.0-16.0); IG# 0.01 K/uL (0.00-0.02); LYMPH % 27.1 %; LYMPH ABS # 1.99 K/uL (1.2-3.4); MEAN CELL VOLUME 88.7 fL (80-100); MEAN CORPUSCULAR HGB CONC 32.7 g/dl (32-36); MEAN PLATELET VOLUME 10.7 fL (7.4-10.4); MONO % 5.3 %; MONO ABS # 0.39 K/uL (0.11-0.59); NEUT % 65.6 %; NEUT ABS # 4.81 K/uL (1.4-6.5); PLATELET COUNT 387 K/uL (130-400); RED CELL DISTRIBUTION WIDTH SD 45.5 fL (36.4-46.3); RETIC COUNT % 2.1 % (0.5-2.0); WHITE BLOOD COUNT 7.34 K/uL (4.8-10.8)
[2017-03-19 17:47] LABS: ALBUMIN 3.7 gm/dl (3.4-5.0); ALKALINE PHOSPHATASE 77 U/L (45-117); ALT/SGPT 70 U/L (12-78); AST/SGOT 82 U/L (15-37); BLOOD UREA NITROGEN 9 mg/dl (7-18); CALCIUM 8.9 mg/dl (8.5-10.1); CARBON DIOXIDE 27 mmol/L (21-32); CREATININE 0.65 mg/dl (0.60-1.20); GLUCOSE 103 mg/dl (70-99); POTASSIUM 3.7 mmol/L (3.5-5.1); SODIUM 141 mmol/L (136-145); TOTAL PROTEIN 6.8 gm/dl (6.4-8.2)
[2017-03-19 17:49] LABS: TRANSFERRIN 301 mg/dl (200-360)
== END | disposition home or self-care (01) ==
LOC: C.LABBFT 15:21
PROVIDERS: ATTEND Internal Medicine
DX: R10.32 Left lower quadrant pain (principal); D64.9 Anemia, unspecified; R10.2 Pelvic and perineal pain

== ENCOUNTER → 2017-07-01 | Day surgery (SDC) | payer OTHER ==
[2017-06-24 08:24] VITALS: Ht 157.5 cm; Wt 56.8 kg
[~2017-07-01] VITALS: Ht 157.5 cm; Wt 56.8 kg
[~2017-07-01] MED LIST changes: +CETI10TA84 PO; -CHOL100010 PO; -CITA10TA4 PO; +DIAZ2TAB PO; +ESCI1TAB10 PO; +FLUT0.15; +LIDOCAINE HCL 2% 2 ML VIAL (20MG/ML) ONE; +MECL1TAB42 PO; +MULT-506 PO; +PROPOFOL IV EMULSION 10 MG/ML 20 ML VIAL ONE; +SODIUM CHLORIDE 0.9% 500ML 500 ML IV ONE; -VALA500T60 PO; +ZOLP10TA PO; -ZOLP10TA6 PO
--- NOTE | 2017-07-01 11:00 | Endo History and Physical ---
History & Physical Date of Service: July 01, 2017. Chief Complaint: Anemia Referring Physician: Dr. Marcella Valadez History of Present Illness 62 yo CF who presents for Colonoscopy secondary to anemia. Past Surgical History Hx Cardiac Surgery: No Hx Internal Defibrillator: No Hx Pacemaker: No Hx Abdominal Surgery: Yes (LAPAROSCOPY) Hx of Implantable Prosthesis: No Hx Post-Op Nausea and Vomiting: No Hx Cancer Surgery: No Hx Thoracic Surgery: No Hx Orthopedic: Yes (RT/LEFT SHOULDER SURGERY, RT FOOT BUNIONECTOMY) Hx Urinary Tract Surgery: Yes (BLADDER SUSPENSION) Family History None Social History Smoking Status: Never Smoker Hx Substance Use: No Hx Alcohol Use: No Allergies Coded Allergies: No Known Allergies (Verified , 06/24/17) Current Medications Reported Home Medications Medications Dose Route/Sig Max Daily Dose Days Date Category Zyrtec (Cetirizine HCl) 10 Mg Tab 10 Mg PO QAM 06/24/17 Reported Flonase Allergy Relief (Fluticasone Propionate (Nasal)) 50 Mcg/Act Spr 1 [place] NA DIRECTED PRN 06/24/17 Reported Multivitamin (Multivitamins) Tab 1 Tab PO DAILY 06/24/17 Reported Lexapro (Escitalopram Oxalate) 20 Mg Tab 20 Mg PO QPM 06/24/17 Reported Wellbutrin Sr (Bupropion HCl) 150 Mg Ertab 150 Mg PO QAM 06/24/17 Reported Ambien (Zolpidem Tartrate) 10 Mg Tab 10 Mg PO HS 06/24/17 Reported Valium (Diazepam) 2 Mg Tab 2 Mg PO QID 06/24/17 Reported Meclizine Hcl 25 Mg Tab 1 Tab PO TID PRN 06/24/17 Reported Vital Signs Weight (Kilograms): 56.82 Height (Feet): 5 Height (Inches): 2 Date Time Temp Pulse Resp B/P (MAP) Pulse Ox O2 Delivery O2 Flow Rate FiO2 07/01/17 10:22 36.9 76 18 173/100 (124) 99 Room Air Physical Exam General Appearance: WD/WN, no apparent distress Respiratory/Chest: Auscultation: breath sounds normal Cardiovascular: Heart Auscultation: RRR Abdomen: Bowel Sounds: normal Inspection & Palpation: soft, non-distended, no tenderness, guarding & rebound Assessment and Plan Assessment: 62 yo CF who presents for Colonoscopy secondary to anemia. Plan: Proceed with colonoscopy.
--- NOTE | 2017-07-01 11:28 | GI REPORT ---
Patient Name: Elaina Abreu Procedure Date: 07/01/2017 10:46 AM Date of : 1955 Admit Type: Outpatient Age: 62 Gender: Female Attending MD: Jair Garnica DO Procedure: Colonoscopy Providers: Jair Garnica DO Referring MD: Marcella Valadez Indications: Iron deficiency anemia Medicines: Monitored Anesthesia Care Complications: No immediate complications. Estimated Blood Loss: Estimated blood loss: none. Procedure: Pre-Anesthesia Assessment: - Prior to the procedure, a History and Physical was performed, and patient medications and allergies were reviewed. The patient's tolerance of previous anesthesia was also reviewed. The risks and benefits of the procedure and the sedation options and risks were discussed with the patient. All questions were answered, and informed consent was obtained. Prior Anticoagulants: The patient has taken no previous anticoagulant or antiplatelet agents. ASA Grade Assessment: II - A patient with mild systemic disease. After reviewing the risks and benefits, the patient was deemed in satisfactory condition to undergo the procedure. After I obtained informed consent, the scope was passed under direct vision. Throughout the procedure, the patient's blood pressure, pulse, and oxygen saturations were monitored continuously. The On-site loaner was introduced through the anus and advanced to the terminal ileum. The colonoscopy was performed without difficulty. The patient tolerated the procedure well. The quality of the bowel preparation was good. The terminal ileum, ileocecal valve, appendiceal orifice, and rectum were photographed. Findings: The perianal and digital rectal examinations were normal. The entire examined colon appeared normal. Impression: - The entire examined colon is normal. - No specimens collected. Recommendation: - Resume previous diet. - Continue present medications. - Repeat colonoscopy in 10 years for surveillance. - Return to primary care physician as previously scheduled. Jair Garnica DO 07/01/2017 11:28:27 AM This report has been signed electronically. Note Initiated On: 07/01/2017 10:46 AM Number of Addenda: 0 I attest to the content of the Intraoperative Record and orders documented therein, exceptions below {[id number]}
--- NOTE | 2017-07-01 11:32 | Discharge Instructions ---
Endoscopy Patient Instructions Date / Procedure(s) Performed July 01, 2017. Colonoscopy Allergy Information Coded Allergies: No Known Allergies (Verified , 06/24/17) Discharge Date / Findings July 01, 2017. Normal colonoscopy Medication Instructions OK to resume all medications today as prescribed Reported Home Medications Medications Dose Route/Sig Max Daily Dose Days Date Category Zyrtec (Cetirizine HCl) 10 Mg Tab 10 Mg PO QAM 06/24/17 Reported Flonase Allergy Relief (Fluticasone Propionate (Nasal)) 50 Mcg/Act Spr 1 [place] NA DIRECTED PRN 06/24/17 Reported Multivitamin (Multivitamins) Tab 1 Tab PO DAILY 06/24/17 Reported Lexapro (Escitalopram Oxalate) 20 Mg Tab 20 Mg PO QPM 06/24/17 Reported Wellbutrin Sr (Bupropion HCl) 150 Mg Ertab 150 Mg PO QAM 06/24/17 Reported Ambien (Zolpidem Tartrate) 10 Mg Tab 10 Mg PO HS 06/24/17 Reported Valium (Diazepam) 2 Mg Tab 2 Mg PO QID 06/24/17 Reported Meclizine Hcl 25 Mg Tab 1 Tab PO TID PRN 06/24/17 Reported Provider Instructions Activity Restrictions - No exercising or heavy lifting for 24 hours. - Do not drink alcohol the day of the procedure. - Do not drive a car or operate machinery until the day after the procedure. - Do not make any important decisions or sign important papers in 24 hours after the procedure. Following Day: - Return to full activity which may include returning to work/school. Diet Start your diet with liquids and light foods (jello, soup, juice, toast). Then eat your usual diet if not nauseated. Treatment For Common After Affects For mild abdominal pain, bloating, or excessive gas: - Rest - Eat lightly - Lie on right side Follow-Up Information Follow-up with Dr. Marcella Valadez as scheduled Anesthesia Information What You Should Know You have had a procedure that required some medicine to reduce anxiety and discomfort. This treatment is called moderate sedation. After receiving the treatment, you may be sleepy, but you will be able to breathe on your own. The effects of the treatment may last for several hours. Follow these instructions along with Activity/Diet recommendations noted above: * Do NOT do anything where dizziness or clumsiness would be dangerous. * Rest quietly at home today, then you can be up and about tomorrow. * Have a responsible person stay with you the rest of today. * You may have had an I.V. today. If so, you may take the dressing off later today. Recommendations Call your doctor if: * Trouble breathing * Continuous vomiting for more than 24 hours * Temperature above 101 degrees * Severe abdominal pain or bloating * Pain not relieved by pain medicine ordered * There is increased drainage or redness from any incision * A large amount of rectal bleeding greater than 2-3 tablespoons. (If you had a polyp/s removed or have hemorrhoids, a small amount of blood - from the rectum is to be expected.) * You have any unanswered questions or concerns. IN THE EVENT OF A SERIOUS EMERGENCY, GO TO THE NEAREST EMERGENCY ROOM Your discharge instructions were prepared by provider Jair Garnica. Patient Instructions Signature Page Elaina Benavides Patient (or Guardian) Signature/Date: I have read and understand the instructions given to me by my caregivers. Caregiver/RN/Doctor Signature/Date: The above-named patient and/or guardian has received patient instructions on this date. + Original Patient Signature Page (only) stays with chart. Please make copy for patient.
[2017-07-01 12:07] VITALS: BP 173/116; PULSE 70; TEMP 36.9; O2SAT 100
--- NOTE | 2017-07-01 12:22 | Anesthesiology Progress Note ---
Anesthesia Post Op Note Date & Time July 01, 2017 at 12:22 Vital Signs Pain Intensity: 0 Vital Signs Past 12 Hours Date Time Temp Pulse Resp B/P (MAP) Pulse Ox O2 Delivery O2 Flow Rate FiO2 07/01/17 11:52 71 16 173/91 (118) 100 Room Air 07/01/17 11:37 77 16 134/79 (97) 100 Room Air 07/01/17 10:22 36.9 76 18 173/100 (124) 99 Room Air Notes Mental Status: alert / awake / arousable, participated in evaluation Pt Amnestic to Procedure: Yes Nausea / Vomiting: adequately controlled Pain: adequately controlled Airway Patency, RR, SpO2: stable & adequate BP & HR: stable & adequate Hydration State: stable & adequate Anesthetic Complications: no major complications apparent
== END | disposition home or self-care (01) ==
LOC: C.GI 09:46
PROVIDERS: ATTEND Internal Medicine
DX: D64.9 Anemia, unspecified (principal); M19.90 Unspecified osteoarthritis, unspecified site; F41.9 Anxiety disorder, unspecified; F32.9 Major depressive disorder, single episode, unspecified

== ENCOUNTER → 2017-07-03 | Outpatient (CLI) | payer OTHER ==
[~2017-07-03] MED LIST changes: -LIDOCAINE HCL 2% 2 ML VIAL (20MG/ML) ONE; -PROPOFOL IV EMULSION 10 MG/ML 20 ML VIAL ONE; -SODIUM CHLORIDE 0.9% 500ML 500 ML IV ONE
== END | disposition home or self-care (01) ==
LOC: C.PAPS 11:44
PROVIDERS: ATTEND Obstetrics & Gynecology
DX: Z12.4 Encounter for screening for malignant neoplasm of cervix (principal)

== ENCOUNTER → 2017-09-24 | Outpatient (CLI) | payer OTHER ==
[2017-09-24 17:43] LABS: BLOOD UREA NITROGEN 10 mg/dl (7-18); CREATININE 0.77 mg/dl (0.60-1.20)
== END | disposition home or self-care (01) ==
LOC: C.LABBFT 12:03
DX: H81.10 Benign paroxysmal vertigo, unspecified ear (principal)

== ENCOUNTER → 2017-09-29 | Outpatient (CLI) | payer OTHER ==
[~2017-09-29] MED LIST changes: +GADAVIST IV PRN
--- NOTE | 2017-09-29 18:03 | DIAGNOSTIC IMAGING REPORT ---
MRI OF THE BRAIN COMBO INTERNAL AUDITORY CANAL PROTOCOL CLINICAL HISTORY: Vertigo. COMPARISON STUDY: MRI of the brain dated 08/14/2011. TECHNIQUE: MRI of the brain was performed utilizing various T1 and T2-weighted sequences in the axial, sagittal, and coronal planes. Contrast-enhanced sequences were acquired following the administration of 6 cc of Gadavist. Additional high-resolution imaging through the skull base was performed both pre and post contrast to assess the internal artery canals. Evaluation of the right facial region is degraded by metallic susceptibility artifact. The examination is also degraded by motion artifact. FINDINGS: Brain parenchyma: There is mild cerebellar atrophy. Minimal subcortical and periventricular microangiopathic disease is observed. There is no hemorrhage or mass effect. There is no restricted diffusion to suggest acute ischemia. No enhancing mass lesion is identified on the postcontrast images. Rubio-white matter differentiation is preserved. No extra-axial fluid collection is seen. The cerebellar tonsils are normal in configuration. Ventricles, sulci, and cisterns: Normal in configuration. Internal auditory canals: No enhancing mass lesion is identified in the cerebellopontine angle bilaterally. There is no mass or abnormal enhancement seen along the course of the internal auditory canals. The middle ear structures are normal as visualized. Pituitary and sella: Unremarkable. Intracranial vasculature: Normal flow voids are maintained at the skull base. Orbits: The bony orbits are grossly intact. Orbital contents are normal in appearance. Sinuses and mastoids: There is evidence of previous paranasal sinuses. The paranasal sinuses and mastoid air cells are clear as visualized. Calvarium: Unremarkable. Cervical cord: Partially visualized cervical spinal cord is normal in morphology and signal intensity. IMPRESSION: 1. There is no acute intracranial abnormality. 2. Unremarkable MRI assessment of the internal auditory canals. 3. There is mild and asymmetric cerebellar atrophy, which is of indeterminant significance. Electronically signed by: Florencio Mcguire M.D. 09/29/2017 6:02 PM Dictated Date/Time: 09/29/2017 5:52 PM
== END | disposition home or self-care (01) ==
LOC: C.MRI 15:15
DX: R42 Dizziness and giddiness (principal)